=== PATIENT | female | born 1990 | race Caucasian/White ===

== ENCOUNTER → 2018-03-27 14:00 | Emergency (ER) | payer SELFPAY ==
[~2018-03-27 14:00] MED LIST: Misoprostol TAB* 200 MCG PO ONE; RHO D Immune Globulin (HUMAN)* 300 MCG = 1,500 I.U. INJ IM ONE
--- NOTE | 2018-03-27 14:41 | ED ---
Abdominal Pain/Female - HPI Summary HPI Summary: A 27 y/o F presents to ED with c/o vaginal bleeding with clots onset three days ago, and became heavy yesterday. Associated sx: abd cramping. She had a positive test at home and has not been to an [facility] yet. [facility]: 01/31/18. She is /A1. She is O-negative. PMHx: Crohn's, she is not currently on daily medications. Smoker, 1/2 ppd. Her last was delivered at [facility]. - History of Current Complaint Chief Complaint: EDAbdPain Stated Complaint: POSS MISCARRAGE Time Seen by Provider: 03/27/18 14:36 Hx Obtained From: Patient, Family/Sample Supervisor - mother Onset/Duration: Sudden Onset, Lasting Days, Still Present Timing: Constant Severity Initially: Moderate Severity Currently: Severe Pain Intensity: 4 Pain Scale Used: 0-10 Numeric Character: Cramping Associated Signs and Symptoms: Positive: Vaginal Bleeding - and clots, Other: - abd cramping Allergies/Adverse Reactions: Allergies Allergy/AdvReac Type Severity Reaction Status Date / Time ondansetron Allergy Hives Verified 03/27/18 14:07 PMH/Surg Hx/FS Hx/Imm Hx Previously Healthy: No GI History: Reports: Hx Crohn's Disease History: Reports: Other Problems/Disorders - Miscarriage Opthamlomology History: Denies: Hx Legally Blind EENT History: Denies: Hx Deafness Infectious Disease History: No Infectious Disease History: Denies: Traveled Outside the [place] in Last 30 Days - Family History Known Family History: Positive: Other - [place] Negative: Cardiac Disease, Hypertension - Social History Occupation: Student Lives: With Family Hx Tobacco Use: Yes - 1/2 ppd Review of Systems Positive: Abdominal Pain - "cramping" Positive: discharge - vaginal bleeding with clots, other - pos: All Other Systems Reviewed And Are Negative: Yes Physical Exam - Summary Physical Exam Summary: Appearance: Well appearing, no pain distress Skin: warm, dry, reflects adequate perfusion Head/face: normal Eyes: EOMI, JAYLYN ENT: mucous membranes moist Neck: supple, non-tender Respiratory: CTA, breath sounds present Cardiovascular: RRR, pulses symmetrical Abdomen: non-tender, soft Bowel Sounds: present Musculoskeletal: normal, strength/ROM intact Neuro: normal, sensory motor intact, A&Ox3 Psych: normal affect 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 Mother at bedside. Cervix closed, mild to moderate amount of blood and clot in the vault. Triage Information Reviewed: Yes Vital Signs On Initial Exam: Initial Vitals Temp Pulse Resp BP Pulse Ox 97.5 F 88 16 110/71 100 03/27/18 14:04 03/27/18 14:04 03/27/18 14:04 03/27/18 14:04 03/27/18 14:04 Vital Signs Reviewed: Yes Diagnostics - Vital Signs Vital Signs Temp Pulse Resp BP Pulse Ox 03/27/18 14:04 97.5 F 88 16 110/71 100 - Laboratory Lab Statement: Any lab studies that have been ordered have been reviewed, and results considered in the medical decision making process. - Ultrasound No standard instances Ultrasound Interpretation Completed By: Radiologist Summary of Ultrasound Findings: TRANSVAGINAL U/S: IMPRESSION: Intrauterine gestation with a gestational age of 7 weeks 1 day. No heart activity is noted. The gestational sac appears to be implanted low in the uterus. This is consistent with demise. ED provider has reviewed this report. Abdominal Pain Fem Course/Dx - Course Course Of Treatment: Nurse's notes reviewed. Patient is O- with a history of having received RhoGAM in the past. Ultrasound consistent with demise approximate 7 weeks. Cytotec orally given here along with RhoGAM. Patient is not having ton of pain and bleeding is modest. Methargen orally tomorrow. Follow-up outpatient with [facility]. - Diagnoses Differential Diagnosis: Positive: Ectopic , , Other - Miscarriage Provider Diagnoses: Inevitable Discharge - Sign-Out/Discharge Documenting (check all that apply): Patient Departure - D/C - Discharge Plan Condition: Stable Disposition: HOME Prescriptions: Methylergonovine TAB* [Methergine TAB*] 0.6 mg PO ONCE #3 tab Patient Education Materials: Miscarriage (ED) Referrals: Cleo CALVO,Joo Farias [Primary Care Provider] - Additional Instructions: Call today for prompt follow-up with [facility]. Return with heavy bleeding , weakness, passing out, new symptoms or other concerns. - Billing Disposition and Condition Condition: STABLE Disposition: Home - Attestation Statements Document Initiated by Scribe: Yes Documenting Scribe: SoAbiodun Hansen Provider For Whom Kathrynibhazel is Documenting (Include Credential): Dr. Tyrel Sanchez MD Scribe Attestation: Eric Nguyen scribed for Dr. Tyrel Sanchez MD on 03/27/18 at 1613. Scribe Documentation Reviewed: Yes Provider Attestation: The documentation as recorded by the Eric marshall accurately reflects the service I personally performed and the decisions made by me, Dr. Tyrel Sanchez MD Status of Scribe Document: Viewed
[2018-03-27 16:49] VITALS: BP 102/54
== END | disposition home or self-care (01) ==
LOC: ED 14:00
DX: O03.9 Complete or unspecified spontaneous abortion without complication (principal); F17.210 Nicotine dependence, cigarettes, uncomplicated
CPT/HCPCS: 36415; 76817; 84702; 86850; 86900; 86901; 96372; 99282; A9270-GY; J2790